=== PATIENT | male | born 1960 | race Caucasian/White ===

== ENCOUNTER 2019-04-27 12:54 | Emergency (ER) | payer OTHER ==
[~2019-04-27] VITALS: Ht 172.7 cm; Wt 70.3 kg
[2019-04-27] MEDS ORDERED: ASPIRIN81 MG PO (13:07)
[2019-04-27] MEDS ORDERED: METFORMIN HCL1000 MG PO (13:07)
[2019-04-27] MEDS ORDERED: DOXYCYCLINE HY100 MG PO (13:59)
== END 2019-04-27 14:07 | disposition home or self-care (01) ==
LOC: ED 12:54
DX: L03.011 Cellulitis of right finger (principal); E11.9 Type 2 diabetes mellitus without complications; F17.200 Nicotine dependence, unspecified, uncomplicated; Z79.84 Long term (current) use of oral hypoglycemic drugs; Z79.82 Long term (current) use of aspirin
CPT/HCPCS: 26010; 99283-25